=== PATIENT | male | born 1995 | race Caucasian/White ===

== ENCOUNTER 2020-08-04 14:56 | Emergency (ER) | payer OTHER ==
[~2020-08-04] VITALS: Ht 182.9 cm; Wt 90.7 kg
--- NOTE | 2020-08-04 15:10 | NUR ---
BIB SELF C/O VOMITING, DIARRHEA AND BODYACHES STARTED LAST NIGHT. PATIENT A/OX4, BREATHING EVEN AND UNLABORED, NO SOB NOTED. NEEDS ATTENDED. KEPT COMFORTABLE.
[2020-08-04] MEDS ORDERED: ONDANSETRON HCL/PF 4 MG/2 ML VIAL ONE (15:43)
[2020-08-04] MEDS ORDERED: KETOROLAC TROMETHAMINE 15 MG/ML VIAL ONE (15:43)
[2020-08-04] MEDS ORDERED: FAMOTIDINE/PF INJ 20 MG/2 ML VIAL IV ONE ×2 (15:44→16:00)
--- NOTE | 2020-08-04 15:56 | NUR ---
IV LINE ESTABLISHED, BLOOD DRAWN AND SENT TO LAB.
[2020-08-04] MEDS ORDERED: KETOROLAC TROMETHAMINE INJ 30 MG/ML VIAL IV ONE (16:00)
[2020-08-04] MEDS ORDERED: IV NS 0.9% 1,000 ML BAG IV ONE (16:00)
[2020-08-04] MEDS ORDERED: ONDANSETRON HCL/PF 4 MG/2 ML VIAL IVP ONE (16:00)
--- NOTE | 2020-08-04 16:10 | NUR ---
COVID SWAB AND SENT TO LAB
[2020-08-04 16:28] LABS: HEMATOCRIT 54 % (39-51); HEMOGLOBIN 18.4 g/dL (13.5-17.5); MEAN CORPUSCULAR HGB CONC 34 g/dl (31.0-36.0); MEAN CORPUSCULAR VOLUME 93 fL (80-96); PLATELET COUNT (AUTO) 201 /CMM (150-450); RED BLOOD CELL COUNT(AUTO) 5.72 MIL/uL (4.5-6.0); WHITE BLOOD COUNT (AUTO) 9.5 K/uL (4.3-11.0)
[2020-08-04 16:48] LABS: CALCIUM, SERUM 8.9 mg/dL (8.5-10.1); CREATININE 1.4 mg/dL (0.6-1.3); POTASSIUM 4.9 mmol/L (3.5-5.1)
[2020-08-04 16:55] LABS: ALBUMIN 4.3 g/dL (3.4-5.0); BILIRUBIN,DIRECT 0.2 mg/dL (0.0-0.2); BILIRUBIN,TOTAL 0.9 mg/dL (0.2-1.0); TOTAL PROTEIN, SERUM 8.1 g/dL (6.4-8.2)
--- NOTE | 2020-08-04 17:28 | NUR ---
PATIENT RESTING, NO DISTRESS NOTED. NEEDS ATTENDED.
[2020-08-04 17:38] LABS: BAND % (MANUAL) 8 % (0.0-5.0); LYMPHOCYTES % (MANUAL) 8 % (16-48); MONOCYTES % (MANUAL) 6 % (0-11.0); NEUTROPHILS % (MANUAL) 77 (42-76); REACTIVE LYMPHOCYTES 1 % (0-0)
--- NOTE | 2020-08-04 18:37 | NUR ---
PATIENT AWAKE ALERT AND ORIENTED, STS HE FEELS BETTER. IV removed. Catheter intact and site benign. Pressure and 4x4 applied to site. No bleeding noted.
--- NOTE | 2020-08-04 18:52 | NUR ---
Patient discharged to home in stable condition. Written and verbal after care instructions given. Patient verbalizes understanding of instruction. Waiting for a friend to give him clothes. Patient soiled his old clothes.
[2020-08-04 19:11] VITALS: BP 117/73
--- NOTE | 2020-08-04 19:11 | NUR ---
patient received his clothes. Patient discharged to home.
== END 2020-08-04 19:12 | disposition home or self-care (01) ==
LOC: ER 15:04
DX: R11.2 Nausea with vomiting, unspecified (principal); R19.7 Diarrhea, unspecified; Z20.828 Contact with and (suspected) exposure to other viral communicable diseases; I10 Essential (primary) hypertension; Z88.0 Allergy status to penicillin
CPT/HCPCS: 36415; 80048; 80076; 83690; 85025; 87426; 96361; 96374; 96375; 99284; C9803; J1885; J2405; J3490; J7030